=== PATIENT | female | born 1995 ===

== ENCOUNTER 2020-01-02 23:46 | Outpatient (CLI) | payer OTHER ==
[~2020-01-02] VITALS: Ht 160 cm; Wt 84.2 kg
[2020-01-03 00:24] VITALS: BP 134/70
--- NOTE | 2020-01-03 01:10 | IPNPDOC ---
Obstetrical Progress Note Date of Service Jan 03, 2020 Subjective 24-year-old 4, para 04/23/2002 who presents as unregistered patient for [facility] at 35 weeks with complaints of contractions. She reports contractions that have been regular throughout they started to space out upon arrival. She reports active movements. Denies any vaginal bleeding or leakage fluid. PMC: [facility]. She is currently using progesterone therapy for history of a 36 and 32 week delivery. Past medical history: None. Past surgical history: None. Past obstetrical history she is a 4, para 3. She said one term vaginal delivery and this was followed by 2 vaginal deliveries. Medications: Progesterone No known drug allergies. Social history denies any alcohol, tobacco, drugs during Physical exam: Vital signs are stable. She is afebrile. Category 1 rate tracing with irregular contractions on tocometer. General appearance well-appearing, no distress Abdomen was gravid, nontender. Cervix 05/16- Assessment: 24-year-old 4, para 3 at 35 weeks with contractions, but not in active labor. Reassuring status. Plan is to discharge home with labor precautions and kick count instructions. Follow-up with primary automation developer Objective Vital Signs Date Time Temp Pulse Resp B/P (MAP) Pulse Ox O2 Delivery O2 Flow Rate FiO2 01/03/20 00:24 97.8 97 134/70 (91) Assessment Variability: Moderate Accelerations: Positive Heart Rate Tracing: Category I Tocometer Contractions: Yes Frequency: irregular Sterile Vaginal Examination Dilation: 1cm Effacement (%): 30% Station: -3 Cervical Consistency: Medium Cervical Position: Middle Postion/Presentation: Cephalic presentation Assessment and Plan Age: 24 Status: Reassuring BRITTA PINON MD. Jan 03, 2020 01:10
== END 2020-01-03 01:10 | disposition home or self-care (01) ==
LOC: M LDO 23:46
PROVIDERS: ATTEND Obstetrics & Gynecology
DX: O47.03 False labor before 37 completed weeks of gestation, third trimester (principal); Z3A.35 35 weeks gestation of pregnancy
CPT/HCPCS: 59025; G0378; G0463